=== PATIENT | male | born 1970 | race Caucasian/White ===

== ENCOUNTER → 2017-03-21 | Outpatient (CLI) | payer MEDICAID | LOC: CIMAGING 07:27 | PROVIDERS: ATTEND Family Medicine | DX: K76.0 Fatty (change of) liver, not elsewhere classified (principal) | CPT/HCPCS: 76705-PO ==

== ENCOUNTER 2017-09-16 14:34 | Emergency (ER) | payer MEDICAID ==
[2017-09-16 14:40] VITALS: TEMP 98.4
[2017-09-16] MEDS ORDERED: LORazepam 1 MG TAB PO ONE (15:49)
--- NOTE | 2017-09-16 15:54 | EDPHY ---
H & P Stated Complaint: Depression, Suicidal Ideations Time Seen by Provider: 09/16/17 15:38 HPI/ROS: CHIEF COMPLAINT: Depression HISTORY OF PRESENT ILLNESS: The patient is a 47-year-old man with a longstanding history of depression. He also has a history of ECT therapy in February of this year performed by Dr. Franklin and Jm. He was at his psychiatrist Dr. John Hawthorne's office today and broke down crying and shaking. Dr. Hawthorne called here and told him to come here to be admitted and get ECT therapy again. He has not had any change in his medications. He denies recent drug or alcohol use. He denies any medical complaints. He does request something for anxiety. REVIEW OF SYSTEMS: Constitutional: denies: chills, fever, recent illness, recent injury EENTM: denies: blurred vision, double vision, nose congestion Respiratory: denies: cough, shortness of breath Cardiac: denies: chest pain, irregular heart rate, lightheadedness, palpitations Gastrointestinal/Abdominal: denies: abdominal pain, diarrhea, nausea, vomiting, blood streaked stools Genitourinary: denies: dysuria, frequency, hematuria, pain Musculoskeletal: denies: joint pain, muscle pain Skin: denies: lesions, rash, jaundice, bruising Neurological: denies: headache, numbness, paresthesia, tingling, dizziness, weakness Hematologic/Lymphatic: denies: blood clots, easy bleeding, easy bruising Immunologic/allergic: denies: HIV/AIDS, transplant EXAM: GENERAL: Well-appearing, well-nourished and in no acute distress. HEAD: Atraumatic, normocephalic. EYES: Pupils equal round and reactive to light, extraocular movements intact, sclera anicteric, conjunctiva are normal. ENT: TMs normal, nares patent, oropharynx clear without exudates. Moist mucous membranes. NECK: Normal range of motion, supple without lymphadenopathy or JVD. LUNGS: Breath sounds clear to auscultation bilaterally and equal. No wheezes rales or rhonchi. HEART: Regular rate and rhythm without murmurs, rubs or gallops. ABDOMEN: Soft, nontender, normoactive bowel sounds. No guarding, no rebound. No masses appreciated. BACK: No CVA tenderness, no spinal tenderness, step-offs or deformities EXTREMITIES: Normal range of motion, no pitting or edema. No clubbing or cyanosis. NEUROLOGICAL: Cranial nerves II through XII grossly intact. Normal speech, normal gait. 5/5 strength, normal movement in all extremities, normal sensation PSYCH: Normal mood, normal affect. SKIN: Warm, dry, normal turgor, no visible rashes or lesions. Source: Patient Exam Limitations: No limitations - Personal History Current Tetanus Diphtheria and Acellular Pertussis (TDAP): Unsure - Medical/Surgical History Hx Asthma: No Hx Chronic Respiratory Disease: No Hx Diabetes: No Hx Cardiac Disease: No Hx Renal Disease: No Hx Cirrhosis: No Hx Alcoholism: No Hx HIV/AIDS: No Hx Splenectomy or Spleen Trauma: No Other PMH: Depression, Traumatic Brain Injury 2002 - Family History Significant Family History: No pertinent family hx - Social History Smoking Status: Never smoked Alcohol Use: Sober Drug Use: None Constitutional: Initial Vital Signs Temperature (C) 36.9 C 09/16/17 14:38 Heart Rate 86 09/16/17 14:38 Respiratory Rate 18 09/16/17 14:38 Blood Pressure 149/93 H 09/16/17 14:38 O2 Sat (%) 95 09/16/17 14:38 O2 Delivery Mode Room Air Allergies/Adverse Reactions: Penicillins Allergy (Verified 09/16/17 14:36) Home Medications: Medication Instructions Recorded Clonazepam 09/16/17 Dexedrine 09/16/17 Latuda 09/16/17 Lunesta 09/16/17 Medical Decision Making ED Course/Re-evaluation: Blood work has been obtained. We will clear the patient medically and turn over to the psychiatric department. Will treat him with Ativan for anxiety. 4:30 p.m. the patient is medically clear. 8:00 p.m. the patient has been evaluated by Mental Health. They feel that he would be appropriate for placement at a [facility]. They have discussed this with her psychiatrist as well as the patient's who both agree. The patient is not on a hold. He will be sent over by [employer]. Differential Diagnosis: Partial list of the Differential diagnosis considered include but were not limited to; depression, anxiety and although unlikely based on the history and physical exam, I also considered suicidality, homicidality, bipolar, substance abuse. I discussed these differential diagnoses and the plan with the patient as well as the usual and expected course. The patient understands that the diagnosis is provisional and that in medicine we are not always correct and that further workup is often warranted. Usual and customary warnings were given. All of the patient's questions were answered. The patient was instructed to return to the emergency department should the symptoms at all worsen or return, otherwise to followup with the physician as we discussed. - Data Points Laboratory Results: Laboratory Results 09/16/17 15:25 09/16/17 15:25 Medications Given: Discontinued Medications Lorazepam (Ativan) 2 mg PO EDNOW ONE Stop: 09/16/17 15:50 Last Admin: 09/16/17 15:59 Dose: 2 mg Departure - Departure Disposition: Home, Routine, Self-Care Clinical Impression: Depression Qualifiers: Depression Type: major depressive disorder Major depression recurrence: recurrent Active/Remission status: currently active Major depression episode severity: severe Psychotic features: without psychotic features Qualified Code(s ): F33.2 - Major depressive disorder, recurrent severe without psychotic features Condition: Good Instructions: Depression (ED) Referrals: HELDER GOLD [Primary Care Provider] - As per Instructions
[2017-09-16 15:56] LABS: % IMMATURE GRANULYOCYTES 0.4 % (0.0-1.1); ABSOLUTE IMMATURE GRANULOCYTES 0.03 10^3/uL (0.00-0.10); ADD DIFF? NO; ADD MORPH? NO; ADD SCAN? NO; ATYPICAL LYMPHOCYTE FLAG 0 (0-99); FRAGMENT RBC FLAG 0 (0-99); HEMATOCRIT 43.6 % (40.0-51.0); LEFT SHIFT FLG 0 (0-99); LIPEMIA HEMOLYSIS FLAG 90 (0-99); MEAN CELL HEMOGLOBIN 32.3 pg (27.9-34.1); MEAN CELL HEMOGLOBIN CONCENTR. 36.7 g/dL (32.4-36.7); MEAN CELL VOLUME 88.1 fL (81.5-99.8); MEAN PLATELET VOLUME 9.7 fL (8.7-11.7); PLATELET CLUMPS FLAG 0 (0-99); PLATELET COUNT 232 10^3/uL (150-400); RED BLOOD CELL COUNT 4.95 10^6/uL (4.40-6.38); RED CELL DISTRIBUTION WIDTH 11.6 % (11.5-15.2)
[2017-09-16 16:05] LABS: ANION GAP 15 mEq/L (8-16); CARBON DIOXIDE 22 mEq/l (22-31); CHLORIDE 105 mEq/L (97-110); ETHANOL SERUM < 10 mg/dL (0-10); GLOMERULAR FILTRATION RATE > 60; GLUCOSE 90 mg/dL (70-100); POTASSIUM 4.3 mEq/L (3.5-5.2); SODIUM 142 mEq/L (134-144)
[2017-09-16 20:22] VITALS: RESP 16
[2017-09-16 22:50] VITALS: BP 126/89; PULSE 75; O2SAT 93
== END 2017-09-17 00:10 | disposition home or self-care (01) ==
DX: F33.2 Major depressive disorder, recurrent severe without psychotic features (principal)
CPT/HCPCS: 80305; G0480

== ENCOUNTER 2018-12-08 15:31 | Emergency (ER) | payer MEDICAID ==
--- NOTE | 2018-12-08 15:35 | EDPHY ---
General - History Smoking Status: Never smoked Time Seen by Provider: 12/08/18 15:35 Narrative: CLINICAL IMPRESSION: Concussion, right elbow pain ASSESSMENT/PLAN: Patient is a 48-year-old male with a significant history of depression and anxiety who presents to the emergency department after sustaining a head injury while skiing and complains of right elbow pain. The fall was witnessed and there was no loss of consciousness, he was helmeted. Patient is afebrile and nontoxic-appearing, he is in no acute distress on arrival. His neurological exam is grossly normal with no focal deficit; he is alert and oriented to person and place, unsure of what year it is. Examination reveals tenderness at the radial head on the right elbow with limited ROM. His fall was videotaped which I reviewed, significant mechanism and concern for shear injury proceeded with head CT. Head CT revealed no intracranial hemorrhage or skull fracture. Right elbow x-ray revealed dislocated elbow. History and physical examination is most consistent with head injury and right elbow dislocation. His elbow was reduced by Dr. John, please see his dictation. The patient was subsequently placed in a sling and will follow up with Orthopedic surgery. He remained neurovascularly intact after reduction. The patient was observed for a period of time, his neurological exam remained grossly normal with no focal deficit and he was at his baseline in regards to his mental status. The patient had no further concerns. The patient is well established with his PCP and will schedule follow-up appointment for Tuesday for repeat examination. He understands the importance of calling Orthopedic surgery to arrange follow-up for next week. Strict return precautions were discussed- he will return to the emergency department for significantly worsening or uncontrolled elbow pain, numbness or tingling of the extremity, paleness or coolness of the extremity, significant swelling, altered mentation, lethargy, vomiting, seizure, abnormal movements or for any other concerning symptom. Patient verbalizes understanding and is in agreement with this plan. DIFFERENTIAL DX: Head injury including but not limited to concussion, skull fracture, intraparenchymal contusion, subarachnoid, subdural and epidural hematoma. Differential of elbow pain includes but not limited to and in no particular order fracture, dislocation, contusion, compartment syndrome ED PROCEDURES: Please see Dr. John dictation for elbow reduction. ED COURSE: 1626: Discussed case with Dr. Oviedo, and head CT was negative for acute intracranial abnormality or skull fracture. 1650: X-ray of right elbow revealed elbow dislocation. Case discussed with Dr. John, he personally and he evaluated this patient. 1710: Dr. John at bedside, elbow reduction. Will repeat x-ray. Dr. John will resume care of this patient at this time. We have discussed all aspects of his case. CHIEF COMPLAINT: Head injury, right elbow pain HPI: Patient is a 48-year-old male with significant history of depression anxiety who presents to the emergency department after sustaining a head injury and right elbow injury after going off a large jump while skiing. Patient was skiing up at [place], decided to go off of a large jump which was videotaped. Patient went off a jump landed on his feet however fell backwards striking his head and right elbow. This was Witness, there was no loss of consciousness and he was helmeted. Patient was seen and evaluated by paramedics at [place] and subsequently brought in by ambulance. Patient with reported perseveration and repetitive questions while in route to the hospital. He denies any headache, dizziness, neck pain or back pain. He complains of right elbow pain worsened with any sort of movement. Patient denies any numbness or tingling of the extremity. He is not on any aspirin or anticoagulation. He denies any nausea and there has been no vomiting, there has been no posttraumatic seizure. Patient denies saddle paresthesias, lower extremity numbness, tingling, major motor weakness, urinary retention or bowel/bladder incontinence. PAST MEDICAL HISTORY: Depression and anxiety Family History: Noncontributory Social History: Denies illicit drug use or cigarette smoking ROS: A full 10 point review of systems was negative except for those mentioned in HPI. PHYSICAL EXAM: General Appearance: Patient is well-developed, no acute distress. HENT: Normocephalic, atraumatic. No Elaine sign or raccoon eyes. TMs are clear bilaterally no perforation or FB, no hemotympanum bilaterally. Oropharynx clear is no erythema or exudates, no tonsillar hypertrophy or asymmetry. Dentition without abnormality. No malocclusion. Eyes: PERRLA, no acute vision change, nystagmus, swelling, discharge, pain or photosensitivity. Conjunctiva pink, no pallor or injection Neck: Supple, nontender, no lymphadenopathy, no midline pain, FROM, no meningismus. Respiratory: There are no retractions, lungs are clear to auscultation. Cardiac: Regular rate and rhythm, no murmurs or gallops. Gastrointestinal: Abdomen is soft, nontender, bowel sounds normal, no masses/ hernia, no rigidity, guarding or focal peritoneal findings. Skin: Warm, dry, no rashes, no nodules on palpation. Neuro: MENTAL STATUS: Patient is alert and oriented to person, place, and situation; unclear of year. Recent and remote memory are intact. Attention and concentration are normal. Found knowledge is appropriate to level of education. Mood and affect normal. SPEECH: Language including naming, repetition, comprehension, and spontaneous speech are normal. No dysarthria or dysphagia. CRANIAL NERVES: II: Visual patricia are full to confrontation. Vision is grossly intact. III, IV, : Pupils are equal, round, reactive to light. Extraocular eye movements are full and without nystagmus. V: Facial sensation is intact to touch symmetrically in all 3 divisions. VII: Face is symmetric at rest with no asymmetry of grimace or evidence of facial weakness. VIII: Hearing is intact bilaterally to finger rub. IX, X: Palate is midline and elevates symmetrically with intact cough/gag. XI: Sternocleidomastoid and trapezius strength is normal. XII: Tongue protrudes midline without atrophy or fasciculations. MOTOR: Normal bulk and tone symmetrically in the upper and lower extremities. Upper extremities: shoulder abduction, elbow flexion, elbow extension, flexion of fingers and finger abduction strength 5/5 bilaterally. Lower extremities: hip flexion, knee flexion and extension, plantar and dorsiflexion of foot, and great toe extension strength 5/5 bilaterally. No pronator drift. SENSORY: Sensation is intact to light touch and symmetric in the UE's in LE's bilaterally. Romberg is negative. COORDINATION: Fine motor and rapid alternating movements are normal. Finger to nose is normal bilaterally. [id number] is normal bilaterally. No abnormal movements noted. There is no tremor at rest or with posture or action. Upper Extremities: Bilateral shoulders are nontender with full range of motion. Left upper extremity is unremarkable, nontender and with full range of motion. Right elbow with tenderness to palpation at the radial head, he is unable to supinate or pronate without significant pain. The radial, ulnar and median nerves were all tested. Radial nerve: Patient is able to extend wrist and fingers of the local joints. Ulnar nerve: Patient is able to abduct all fingers. Median nerve patient is able to oppose thumb to pinky. His forearm compartment is soft, radial pulse 2 +. His wrist and hand are nontender. Two point discrimination is intact distally. Lower Extremities: Intact distal pulses, No edema, No tenderness, No cyanosis, full range of motion intact, No calf tenderness bilaterally. MEDICAL DECISION MAKING: Patient was seen independently. Secondary supervising physician at time of evaluation was Dr. John. Diagnosis: Head injury, right elbow pain. New, requires workup Summary: See Assessment and Plan for summary of ED visit Clinical lab tests: ordered / reviewed. Independent visualization of images, tracing, or specimens: Yes. Decision to obtain medical records or history from someone other than the patient: Yes, witnesses Review / Summarize previous medical records: Yes Discussed patient with another provider: Yes Patient Progress: Stable, discharge. (Eugenie Levin) Medical Decision Making: Independent physician evaluation: I evaluated and participated in the management of the patient. I also evaluated the patient independently. My co-signature indicates that I have reviewed this chart and I agree with the findings and plan of care as documented. My personal H&P findings include: Patient presents the emergency department after he sustained a head injury and elbow injury after a fall skiing today. The patient reports a prior history of traumatic brain injury. He complains of a mild headache and slight confusion surrounding his regular medications. The patient denies any complaints of neck pain, abdominal pain, back pain or additional extremity complaints. He has moderate pain and inability to move his right elbow. Physical exam: General Appearance: Alert, appears uncomfortable Head: Atraumatic Eyes: Pupils equal, round, reactive ENT, Mouth: No hemotympanum, no oral trauma Neck: Nontender, trachea midline Respiratory: No chest wall tender, subcutaneous air, lungs clear bilaterally Cardiovascular: Regular rate and rhythm Abdomen: Abdomen is soft and nontender, pelvis stable Skin: No lacerations, No abrasion Back: No midline T/L/S pain Extremities: Tenderness to palpation noted to the right posterior elbow, unable to range secondary to discomfort. Neurological: A&Ox3, normal motor function, normal sensory exam ED course: Head CT scan demonstrates no evidence of intracranial hemorrhage. Right elbow x-ray demonstrates a posterior elbow dislocation The patient received sedation with IV Versed and Dilaudid. The patient had his elbow reduced by myself. The patient will be discharged home with a sling with orthopedic follow-up. The patient is given concussion aftercare instructions. Procedures 1. Procedure: Conscious sedation. Indication: Elbow dislocation The patient is an appropriate candidate to tolerate procedural sedation. The patient's vital signs and mental status are appropriate. The risks, benefits and alternatives of the sedation were discussed with the patient. The patient is ASA classification 1. The patient's Mallampati airway score was 2 and the patient did meet the 3-3-2 airway measurements. A time out was completed. The patient was sedated with 2 mg of Versed and 1 mg of IV Dilaudid. The patient was monitored with continuous pulse oximetry, russian history professor and end tidal CO2. There were no complications and no significant hypoxemia. I performed both the sedation and the procedure. The total time I spent at the bedside during the procedural sedation was 16 minutes. The patient was examined after the procedural sedation and has returned to their pre-sedation baseline with normal vital signs and a normal examination. 2. Procedure: Dislocation reduction. Indication: Dislocation The elbow was reduced in the usual fashion without complications. Post reduction the patient's neurovascular exam is normal. Post reduction x-ray demonstrates reduction of the joint to the anatomic position. The procedure was performed by myself. (Tai John) - Diagnostics Imaging Results: Imaging Impressions Elbow X-Ray 12/08/18 15:53 Impression: Elbow dislocation. Head CT 12/08/18 15:53 Impression: Head CT within normal limits. Results called to Eugenie Levin at 4:26 PM General information for patients regarding this examination can be found at [email or web address]. If you have questions or comments about this report, please contact me at [phone] (hospital) or [phone] (cell). Elbow X-Ray 12/08/18 17:07 Impression: Successful reduction. - Objective Vital Signs: Initial Vital Signs Temperature (C) 36.7 C 12/08/18 15:36 Heart Rate 64 12/08/18 15:36 Respiratory Rate 18 12/08/18 15:36 Blood Pressure 152/98 H 12/08/18 15:36 O2 Sat (%) 91 L 12/08/18 15:36 Allergies/Adverse Reactions: Penicillins Allergy (Verified 12/08/18 15:39) Home Medications: Medication Instructions Recorded Clonazepam 09/16/17 Dexedrine 09/16/17 Latuda 09/16/17 Lunesta 09/16/17 Hydrocodone/APAP 5/325 [[place] 1 - 2 tab PO Q4H PRN #20 tab 12/08/18 5/325 (*)] Medications Given: Discontinued Medications Fentanyl (Sublimaze) 100 mcg IVP EDNOW ONE Stop: 12/08/18 17:07 Last Admin: 12/08/18 17:10 Dose: 100 mcg Hydromorphone HCl (Dilaudid) 0.5 mg IVP EDNOW ONE Stop: 12/08/18 16:52 Last Admin: 12/08/18 16:57 Dose: 0.5 mg Midazolam HCl (Versed) 2 mg IVP EDNOW ONE Stop: 12/08/18 17:07 Last Admin: 12/08/18 17:10 Dose: 2 mg Departure - Departure Disposition: Home, Routine, Self-Care Clinical Impression: Elbow dislocation Qualifiers: Encounter type: initial encounter Laterality: right Qualified Code(s): S53.104A - Unspecified dislocation of right ulnohumeral joint, initial encounter Concussion Qualifiers: Encounter type: initial encounter Loss of consciousness presence/duration: without LOC Qualified Code(s): S06.0X0A - Concussion without loss of consciousness, initial encounter Condition: Good Instructions: Elbow Dislocation (ED), Concussion (ED) Additional Instructions: DISCHARGE INSTRUCTIONS FROM YOUR DOCTOR Thank you for visiting our emergency department today. Please keep in mind that discharge from the emergency department does not mean that there is nothing wrong - it simply means that we have not identified an emergency condition that requires further evaluation or treatment in the hospital. You should always plan to follow up with primary care for re-evaluation of your condition in the next 2-3 days. If you have been referred to a specialist, please call as soon as possible ( today or tomorrow) to schedule your follow up appointment at the appropriate time; please call to schedule appointment for follow-up with Orthopedic surgery . For pain control: You may take Tylenol, I recommend 500-1000 mg every 6-8 hours as needed. Take with food and a full glass of water. Stop taking if this is upsetting her stomach. Do not exceed 4000 mg in a 24 hr period. You may also take ibuprofen, recommend 400 mg every 6 hr. Take with food and a full glass of water. Stop taking if this upsets her stomach. Do not exceed 2400 mg in a 24 hr period. You have been prescribed [place] which is a narcotic. Please do not drive or operate machinery while taking this medication as it may make you drowsy. It may also be habit forming. This medication can also cause constipation, recommend taking 100 mg of Colace twice daily while taking this medication. This medication also contains Tylenol, please do not take other Tylenol containing products with this medication. Rest, no heavy lifting, pushing, pulling, carrying with the affected arm. Apply ice on and off to the painful area, whichever feels better. Wear the sling as applied until follow-up. Continue your regular medication as prescribed. Call and schedule with a primary care provider for a follow-up appointment and to establish care for your primary care needs. Return for increased or unmanageable pain, inability to move the shoulder or neck, fever, chills, redness, warmth, swelling, numbness, tingling or weakness of the arm, loss of horses or mules teamster strength, coolness of the fingertips, chest pain, shortness of breath, or for any other new, worsening or worrisome symptoms. People present with illnesses and injuries in different ways, and it is always possible that we have missed something. You may always return for re-evaluation if symptoms worsen or if they are not improving or if you develop new/different symptoms. Again, thank you for choosing our emergency department. We hope that you feel better. Referrals: Taylor Soto MD [Medical Doctor] - As per Instructions (Please establish care with a primary care provider if you do not have 1. ) Serina Moe MD [Medical Doctor] - As per Instructions (Please follow-up if you have ongoing post concussive symptoms.) Luis Manuel Reynoso MD [Medical Doctor] - 2-3 days, call for appt. Prescriptions: Hydrocodone/APAP 5/325 [[place] 5/325 (*)] 1 - 2 tab PO Q4H PRN #20 tab PRN Reason: Pain, Moderate
[2018-12-08] MEDS ORDERED: HYDROmorphONE/DILAUDID 2 MG/ML INJ IVP ONE (16:51)
[2018-12-08] MEDS ORDERED: MIDAZOLAM 2 MG/2 ML VIAL ONE (17:02)
[2018-12-08] MEDS ORDERED: fentaNYL 100 MCG/2 ML INJ ONE (17:03)
[2018-12-08] MEDS ORDERED: fentaNYL 100 MCG/2 ML INJ IVP ONE (17:06)
[2018-12-08] MEDS ORDERED: MIDAZOLAM 2 MG/2 ML VIAL IVP ONE (17:06)
[2018-12-08 18:06] VITALS: BP 135/97
== END 2018-12-08 18:25 | disposition home or self-care (01) ==
LOC: EDUNIT#
PROC: 0RSLXZZ Reposition Right Elbow Joint, External Approach (ICD-10-PCS; principal; 2018-12-08)
DX: S06.0X0A Concussion without loss of consciousness, initial encounter (principal); S53.104A Unspecified dislocation of right ulnohumeral joint, initial encounter; V00.321A Fall from snow-skis, initial encounter; Y93.23 Activity, snow (alpine) (downhill) skiing, snowboarding, sledding, tobogganing and snow tubing; Y92.838 Other recreation area as the place of occurrence of the external cause
CPT/HCPCS: 96374; A4565; J1170; J2250; J3010

== ENCOUNTER → 2018-12-28 | Outpatient (CLI) | payer MEDICAID | LOC: FCPNEURO 20:00 | PROVIDERS: ATTEND Student in an Organized Health Care Education/Training Program | DX: G47.33 Obstructive sleep apnea (adult) (pediatric) (principal) ==